=== PATIENT | female | born 2000 ===

== ENCOUNTER 2022-01-11 21:36 | Emergency (ER) | payer MEDICAID ==
[~2022-01-11] VITALS: Ht 172.7 cm; Wt 55.9 kg
[2022-01-11 21:40] VITALS: BP 149/90
[2022-01-11 22:20] LABS: CLARITY,URINE SLIGHTLY CLOUDY (Clear); GLUCOSE, URINE NEGATIVE (Neg); KETONES,URINE NEGATIVE (Neg); LEUKOCYTE ESTERASE ,URINE LARGE (Neg); NITRITES, URINE NEGATIVE (Neg); OCCULT BLOOD,URINE TRACE-INTACT (Neg); PH,URINE 5.5 (4.8-8.0); PROTEIN,URINE NEGATIVE (Neg); UROBILINOGEN,URINE 0.2 E.U/dL (0.2-1.0)
[2022-01-11 22:21] LABS: URINE HCG NEGATIVE (NEG)
[2022-01-11 22:26] LABS: UA COLLECTION TYPE CLN CATCH MIDSTREAM
[2022-01-11 22:27] LABS: COLOR,URINE STRAW (Yellow)
[2022-01-11 22:29] LABS: BACTERIA,URINE 1+ /HPF (Neg); RBC,URINE 0-2 /HPF (0-2)
[2022-01-11 22:30] LABS: SQUAMOUS EPITHELIAL CELL,UR FEW /LPF (FEW)
== END 2022-01-12 01:18 | disposition left against medical advice (07) ==
LOC: ER 21:37
DX: R11.0 Nausea (principal); R14.0 Abdominal distension (gaseous); Z53.21 Procedure and treatment not carried out due to patient leaving prior to being seen by health care provider
CPT/HCPCS: 81001; 81025; 87088